=== PATIENT | female | born 1995 | race Hispanic/Latino ===

== ENCOUNTER 2023-07-09 21:07 | Emergency (ER) | payer SELFPAY ==
[~2023-07-09] VITALS: Ht 162.6 cm; Wt 56.8 kg
[2023-07-09 22:55] LABS: URINE BLOOD DIPSTICK Moderate (NEGATIVE); URINE COLOR Orange; URINE GLUCOSE - DIPSTICK 500 mg/dL (NEGATIVE); URINE KETONE 40 mg/dL (NEGATIVE); URINE LEUK ESTERASE Large (NEGATIVE); URINE NITRITE - DIPSTICK Positive (Negative); URINE PROTEIN - DIPSTICK >=300 mg/dL (NEG-TRACE); URINE UROBILINOGEN - DIPSTICK >=8.0 E.U./dL (0.2)
[2023-07-09 22:56] LABS: URINE SQUAMOUS EPITHELIAL CELL FEW EPI/hpf (0-FEW)
[2023-07-09] MEDS ORDERED: BACTRIM DS1 TAB PO (23:19)
[2023-07-09 23:44] VITALS: BP 133/76
== END 2023-07-09 23:44 | disposition home or self-care (01) | DRG 690 ==
LOC: ED 21:07
PROVIDERS: Family Medicine
DX: N39.0 Urinary tract infection, site not specified (principal); B96.20 Unspecified Escherichia coli [E. coli] as the cause of diseases classified elsewhere

== ENCOUNTER 2023-07-10 07:08 | Emergency (ER) | payer OTHER ==
[~2023-07-10] VITALS: Ht 162.6 cm; Wt 57.0 kg
[~2023-07-10 07:08] MED LIST: BACTRIM DS1 TAB PO
[2023-07-10 07:16] VITALS: BP 115/81
[2023-07-10 07:30] VITALS: BP 115/80
[2023-07-10 08:00] VITALS: BP 105/77
[2023-07-10 08:30] VITALS: BP 108/68
[2023-07-10 09:00] VITALS: BP 112/80
[2023-07-10 09:41] LABS: URINE BILIRUBIN - DIPSTICK Negative (NEGATIVE); URINE BLOOD DIPSTICK Negative (NEGATIVE); URINE GLUCOSE - DIPSTICK Negative (NEGATIVE); URINE KETONE Negative (NEGATIVE); URINE LEUK ESTERASE Negative (Negative); URINE PH 6.5 (4.5-8.0); URINE PROTEIN - DIPSTICK Negative (NEG-TRACE); URINE SPECIFIC GRAVITY 1.015; URINE UROBILINOGEN - DIPSTICK 0.2 E.U./dL (0.2)
[2023-07-10 09:42] LABS: URINE CLARITY Slightly Cloudy; URINE COLOR Yellow; URINE NITRITE - DIPSTICK Positive (Negative)
[2023-07-10 09:44] LABS: URINE BACTERIA FEW hpf
[2023-07-10 10:26] VITALS: BP 112/80
== END 2023-07-10 10:43 | disposition home or self-care (01) | DRG 552 ==
LOC: ED 07:08
PROVIDERS: Family Medicine
DX: M54.6 Pain in thoracic spine (principal); M79.671 Pain in right foot; M25.552 Pain in left hip; V59.50XA Passenger in pick-up truck or van injured in collision with unspecified motor vehicles in traffic accident, initial encounter

== ENCOUNTER 2024-05-18 08:42 | Emergency (ER) | payer OTHER ==
[2024-05-18] VITALS (10 sets, daily range): BP systolic 96–128; BP diastolic 51–77
[~2024-05-18] VITALS: Ht 162.6 cm; Wt 57.6 kg
[2024-05-18 09:19] LABS: URINE BILIRUBIN - DIPSTICK Negative (NEGATIVE); URINE BLOOD DIPSTICK Moderate (NEGATIVE); URINE GLUCOSE - DIPSTICK Negative (NEGATIVE); URINE KETONE Trace mg/dL (NEGATIVE); URINE LEUK ESTERASE Negative (NEGATIVE); URINE NITRITE - DIPSTICK Negative (Negative); URINE PROTEIN - DIPSTICK Negative (NEG-TRACE); URINE SPECIFIC GRAVITY >=1.030; URINE UROBILINOGEN - DIPSTICK 0.2 E.U./dL (0.2)
[2024-05-18 09:20] LABS: URINE COLOR Yellow
[2024-05-18 09:21] LABS: BASO% 0.1 % (0-3); EOS% 3.5 % (0-8); HEMATOCRIT 39.8 % (37.0-47.0); HEMOGLOBIN 13.3 g/dl (12.0-16.0); IMMATURE GRANULOCYTES 0.1 % (0.0-5.0); LYMPH% 32.8 % (15-41); MEAN CELL VOLUME 93.6 fL CALC (80.0-100.0); MEAN CORPUSCULAR HGB 31.3 pG CALC (26.0-32.0); MEAN CORPUSCULAR HGB CONC 33.4 g/dL CAL (32.0-36.0); MONO% 7.3 % (2-13); NEUT# 4.2 thou/uL (2.00-7.15); NEUT% 56.2 % (42-76); RED BLOOD COUNT 4.25 mill/uL (4.20-5.60); RED CELL DISTRI WIDTH 12.1 % (11.5-15.5)
[2024-05-18 09:27] LABS: URINE SQUAMOUS EPITHELIAL CELL MODERATE EPI/hpf (0-FEW)
[2024-05-18 09:28] LABS: URINE WBC 0-2 WBC/hpf (0-5)
[2024-05-18 09:29] LABS: URINE BACTERIA FEW hpf
[2024-05-18 09:30] LABS: URINE MUCUS MODERATE hpf (NONE-FEW)
[2024-05-18 09:30] LABS: ALBUMIN 4.6 g/dL (3.2-5.0); BILIRUBIN, TOTAL 1.2 mg/dL (0.02-1.3); CREATININE 0.5 mg/dL (0.5-1.0); POTASSIUM 3.5 mmol/l (3.5-5.1); TOTAL PROTEIN 7.7 g/dL (6.3-8.2)
== END 2024-05-18 11:57 | disposition home or self-care (01) | DRG 833 ==
LOC: ED 08:42
PROVIDERS: Family Medicine; Internal Medicine
DX: O46.92 Antepartum hemorrhage, unspecified, second trimester (principal); Z3A.14 14 weeks gestation of pregnancy